=== PATIENT | male | born 1940 | race Caucasian/White ===

== ENCOUNTER 2016-05-10 00:28 | Inpatient (IN) | payer MEDICARE, OTHER ==
[~2016-05-10 00:28] MED LIST: ASPIR 8181 MG PO; ATROVENT INH S2.5 ML INH; BROVANA15 MCG/2 M INH; BUSPAR 5MG TABLE5 MG PO; EPLERENONE25 MG PO; FENOFIBRIC ACID45 MG PO; FISH OIL 1,0001 EACH PO; FOLIC ACID1 MG PO; HYDROCORTISONE30 G3 EXT; INCRUSE ELLI62.5 MCG INH; KENALOG CREAM 015 GM TOP; LANTUS INS100 UTS/M1 SQ; LANTUS100 UNIT/1 SQ; LASIX20 MG PO; LEVAQUIN250 MG PO; LEVAQUIN500 MG PO; LEXAPRO10 MG PO; LIPITOR TAB 2020 MG PO; METOPROLOL TAR100 MG PO; MIRALAX PACK 171 PKT GT; MUCINEX600 MG PO; MYCOSTATIN CREA15 GM TOP; NYSTATIN-TRIAMC15 GM TP; PREDNISONE10 MG PO; PROTONIX40 MG PO; PROVENTIL HFA 61 INH INH; REMERON 15 MG T15 MG PO; SYMBICORT 160-1 INHA INH; TRILIPIX135 MG PO; ZYLOPRIM 100 M100 MG PO
[2016-05-10 03:56] LABS: HEMOGLOBIN 11.8 gm/dl (14.0-17.5); RED BLOOD COUNT 3.61 M/UL (4.20-5.50); WHITE BLOOD COUNT 9.7 K/UL (4.5-11.0)
[2016-05-10 04:17] LABS: BUN/CREATININE RATIO 27 (0-10)
[2016-05-10 09:28] LABS: HEMOGLOBIN 10.9 gm/dl (14.0-17.5); RED BLOOD COUNT 3.4 M/UL (4.20-5.50); WHITE BLOOD COUNT 7.4 K/UL (4.5-11.0)
[2016-05-10 09:47] LABS: BUN/CREATININE RATIO 29 (0-10)
[2016-05-10] MEDS ORDERED: FENOFIBRATE134 MG PO (11:18)
[2016-05-10] MEDS ORDERED: LEXAPRO TAB 1010 MG PO (11:20)
[2016-05-11 05:03] LABS: BUN/CREATININE RATIO 21 (0-10)
[2016-05-12 05:51] LABS: HEMOGLOBIN 11.7 gm/dl (14.0-17.5); RED BLOOD COUNT 3.51 M/UL (4.20-5.50); WHITE BLOOD COUNT 8.2 K/UL (4.5-11.0)
[2016-05-12 05:55] LABS: BUN/CREATININE RATIO 20 (0-10)
[2016-05-13 06:07] LABS: HEMOGLOBIN 10.8 gm/dl (14.0-17.5); RED BLOOD COUNT 3.36 M/UL (4.20-5.50); WHITE BLOOD COUNT 7.9 K/UL (4.5-11.0)
[2016-05-14 05:07] LABS: HEMOGLOBIN 10.6 gm/dl (14.0-17.5); RED BLOOD COUNT 3.3 M/UL (4.20-5.50); WHITE BLOOD COUNT 7.1 K/UL (4.5-11.0)
[2016-05-15 08:39] LABS: HEMOGLOBIN 10.1 gm/dl (14.0-17.5); RED BLOOD COUNT 3.11 M/UL (4.20-5.50); WHITE BLOOD COUNT 6.7 K/UL (4.5-11.0)
[2016-05-15] MEDS ORDERED: FISH OIL 1,0001 EACH PO (10:00)
[2016-05-15] MEDS ORDERED: LEVAQUIN500 MG PO (10:02)
[2016-05-15] MEDS ORDERED: VENTOLIN/PROVE0.5 ML INH (10:03)
[2016-05-15] MEDS ORDERED: PERFOROMIS20 MCG/2 M INH (10:05)
[2016-05-15] MEDS ORDERED: PULMICORT0.5 MG/2 M INH (10:08)
[2016-05-15] MEDS ORDERED: BROVANA15 MCG/2 M INH (10:09)
== END 2016-05-15 11:20 | disposition home or self-care (01) | DRG 189 ==
LOC: ER1 00:28 → ZEROF 06:00 → MED SURG 4 15:42
PROVIDERS: Emergency Medicine; Internal Medicine; Internal Medicine Infectious Disease; ADMIT Emergency Medicine
DX: J96.21 Acute and chronic respiratory failure with hypoxia (principal); J18.9 Pneumonia, unspecified organism; I50.33 Acute on chronic diastolic (congestive) heart failure; N17.9 Acute kidney failure, unspecified; I69.854 Hemiplegia and hemiparesis following other cerebrovascular disease affecting left non-dominant side; J47.0 Bronchiectasis with acute lower respiratory infection; Z66 Do not resuscitate; J96.22 Acute and chronic respiratory failure with hypercapnia; I11.0 Hypertensive heart disease with heart failure; K59.00 Constipation, unspecified; H91.3 Deaf nonspeaking, not elsewhere classified; I25.10 Atherosclerotic heart disease of native coronary artery without angina pectoris; E11.9 Type 2 diabetes mellitus without complications; E87.6 Hypokalemia; E78.5 Hyperlipidemia, unspecified; R13.10 Dysphagia, unspecified; D69.6 Thrombocytopenia, unspecified; Z87.891 Personal history of nicotine dependence; Z95.1 Presence of aortocoronary bypass graft; Z95.5 Presence of coronary angioplasty implant and graft; I25.2 Old myocardial infarction; Z79.4 Long term (current) use of insulin; Z79.82 Long term (current) use of aspirin; Z79.52 Long term (current) use of systemic steroids; Z79.899 Other long term (current) drug therapy
CPT/HCPCS: 36415; 36600; 70450; 71010; 80048; 80053; 80202; 81001; 82550; 82553; 82803; 82962; 83690; 83874; 83880; 84132; 84484; 85025; 85027; 85610; 85730; 87040; 87070; 87086; 87205; 93005; 94640; 94664; 96365; 96366; 96367; 96375; 96376; 99285; J1940; J1956; J2543; J3370; J7030; J7050; J7070